=== PATIENT | male | born 1995 | race Caucasian/White ===

== ENCOUNTER 2020-06-22 12:03 | Emergency (ER) | payer BC, SELFPAY ==
--- NOTE | ~2020-06-22 | XR_ITS ---
EXAMINATION: XR forearm LT 2V EXAM DATE: 06/22/2020 12:54 INDICATION: Injury to left forearm. Initial encounter. TECHNIQUE: Left forearm frontal and lateral projections obtained and reviewed. There is no prior denis dy for comparison. FINDINGS: There is acute closed posttraumatic transverse fracture through the midshaft of the left r adius with about 40% shaft width displacement. Alignment is near-anatomic. There is overlying soft ti ssue swelling. The ulna is intact. IMPRESSION: Left mid radial transverse fracture, mild displacement. Reviewed, dictated and finalized at location A.
[2020-06-22 12:31] VITALS: BP 145/80; PULSE 70; RESP 16; TEMP 36.4; O2SAT 100
--- NOTE | 2020-06-22 14:59 | ED.GENADULT ---
HPI - General Adult General Chief complaint: Extremity Injury, Upper Stated complaint: left arm injury Time Seen by Provider: 06/22/20 14:19 Source: patient Mode of arrival: ambulatory Limitations: no limitations History of Present Illness HPI narrative: Patient presents with chief complaint of left arm pain that began just prior to arrival when he was running in gym class and ran into a wall. Patient states he put the hand out to brace himself and felt a snap in his arm. Patient reports pain to the area and decreased range of motion. Patient denies any other injury Related Data Home Medications Medication Instructions Recorded Confirmed No Home Medications 06/22/20 06/22/20 Allergies Allergy/AdvReac Type Severity Reaction Status Date / Time No Known Allergies Allergy Verified 06/22/20 14:18 Review of Systems Review of Systems: Narrative: CONSTITUTIONAL: Denies fever, chills, or sweats. EYES: Denies visual changes, redness, or discharge. ENT: Denies rhinorrhea, congestion, sore throat, or otalgia. CARDIOVASCULAR: Denies chest pain, palpitations, or edema. RESPIRATORY: Denies cough or dyspnea. GASTROINTESTINAL: Denies abdominal pain, nausea, vomiting, or diarrhea. GENITOURINARY: Denies dysuria or hematuria. SKIN: Denies rash or itching. MUSCULOSKELETAL: Reports left arm pain denies back pain, joint pain, or myalgia. NEUROLOGIC: Denies headache, numbness, dizziness, or weakness. PSYCHIATRIC: Denies anxiety or depression. PMFSH Social History Social History Gender identity (if verbalized by the patient): Male Exam Narrative: Exam Narrative: GENERAL: Well-appearing, well-nourished, and in no acute distress. HEAD: Normocephalic, atraumatic. EYES: PERRLA and EOMI. NECK: Supple. No adenopathy or masses. Intact. CHEST: Clear to auscultation. No respiratory distress. No wheezes rales or rhonchi HEART: Regular rate and rhythm. No murmur heard. Normal peripheral pulses. EXTREMITIES: Pain to medial left arm. Patient reports he cannot supinate or pronate due to pain. Dentist/Owner strength intact with positive pain. Some edema. SKIN: Warm, dry, no rash. NEURO: No focal deficits. Alert and oriented x3. PSYCH: Normal mood and affect. Course Vital Signs Vital signs: Vital Signs Temperature 97.6 F 06/22/20 12:31 Pulse Rate 70 06/22/20 12:31 Respiratory Rate 16 06/22/20 12:31 Blood Pressure 145/80 H 06/22/20 12:31 Pulse Oximetry 100 06/22/20 12:31 Temperature 97.6 F 06/22/20 12:31 Pulse Rate 70 06/22/20 12:31 Respiratory Rate 16 06/22/20 12:31 Blood Pressure 145/80 H 06/22/20 12:31 Pulse Oximetry 100 06/22/20 12:31 Medical Decision Making MDM Narrative Medical decision making narrative: Patient placed in long-arm posterior splint and instructed to follow-up with orthopedics for further investigation and management of his fracture. Discussed RICE instructions. Differential Diagnosis Differential Diagnosis: Fracture, sprain, strain Vital Signs Vital Signs: Vital Signs Temperature 97.6 F 06/22/20 12:31 Pulse Rate 70 06/22/20 12:31 Respiratory Rate 16 06/22/20 12:31 Blood Pressure 145/80 H 06/22/20 12:31 Pulse Oximetry 100 06/22/20 12:31 Temperature 97.6 F 06/22/20 12:31 Pulse Rate 70 06/22/20 12:31 Respiratory Rate 16 06/22/20 12:31 Blood Pressure 145/80 H 06/22/20 12:31 Pulse Oximetry 100 06/22/20 12:31 Imaging Data Radiologist's impression: ITS Impressions Forearm X-Ray 06/22/20 12:58 IMPRESSION: Left mid radial transverse fracture, mild displacement. Discharge Plan Discharge Clinical Impression: Fracture, radius Qualifiers: Encounter type: initial encounter Radius location: shaft Fracture type: closed Fracture morphology: transverse Fracture alignment: displaced Laterality: left Qualified Code(s): S52.322A - Displaced transverse fracture of shaft of left radius, initial encounter for closed fracture P
--- NOTE | 2020-07-01 07:19 | PC.NURSE ---
LATE ENTRY This note is being entered to document information to the patient's record. The following information was omitted on [06/22/20], by [Karlie Hargrove RN] patient received long arm splint per EDP verbal order on this date.
== END 2020-06-22 15:38 | disposition home or self-care (01) ==
PROVIDERS: Emergency Provider Emergency Medicine
DX: S52.322A Displaced transverse fracture of shaft of left radius, initial encounter for closed fracture (principal); W22.01XA Walked into wall, initial encounter
CPT/HCPCS: 29105; 73090; 99284; A4565